=== PATIENT | female | born 1950 | race Caucasian/White ===

== ENCOUNTER → 2019-07-19 07:57 | Outpatient (CLI) | payer OTHER, SELFPAY ==
--- NOTE | ~2019-07-19 | MMUS_ITS ---
EXAMINATION: MM diagnostic eleanor LT w paulo, US breast LT limited HISTORY: Six-month follow-up for probably benign left breast asymmetry TECHNIQUE: Craniocaudal, mediolateral, and mediolateral oblique 3-D tomosynthesis images of the left breast were performed and synthetic 2-D images were generated. Spot compression views are also obtain ed. CAD analysis was submitted and interpreted. High resolution limited left breast ultrasound was pe rformed. COMPARISON: 12/14/2018, 11/30/2018, 10/17/1917, 10/21/2016 BREAST PARENCHYMAL COMPOSITION: There are scattered areas of fibroglandular density. FINDINGS: MAMMOGRAPHIC FINDINGS: A stable asymmetry is present 3.5 cm from the nipple in the middle/anterior third of the upper outer left breast. No associated suspicious calcification or architectural distortion are identified. ULTRASOUND: No definite cystic or solid mass is identified in the vicinity of the mammographic finding in questio n. IMPRESSION: 1. Probably benign left breast asymmetry. 2. Recommend 6 month follow-up left diagnostic mammogram and possible ultrasound. BI-RADS category 3, probably benign findings. Reviewed, dictated and finalized at location A. 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 Probably benign left breast asymmetry. 2. Recommend 6 month follow-up left diagnostic mammogram and possible ultrasoun d. BI-RADS category 3, probably benign findings.
== END ==
PROVIDERS: Visit Provider Obstetrics & Gynecology
DX: R92.8 Other abnormal and inconclusive findings on diagnostic imaging of breast (principal)
CPT/HCPCS: 76642; 77061; 77065; G0279

== ENCOUNTER → 2020-01-24 09:18 | Outpatient (CLI) | payer OTHER, SELFPAY ==
--- NOTE | ~2020-01-24 | MMUS_ITS ---
EXAMINATION: MM diagnostic eleanor BI w paulo, US breast LT limited HISTORY: Six-month follow-up for probably benign left breast asymmetry TECHNIQUE: Craniocaudal, mediolateral, and mediolateral oblique 3-D tomosynthesis images of the left breast were performed and synthetic 2-D images were generated. CAD analysis was submitted and interpr eted. High resolution limited left breast ultrasound was performed. COMPARISON: 07/19/2019, 12/14/2018, 11/30/2018, 10/17/2018, 10/21/2016 BREAST PARENCHYMAL COMPOSITION: The breasts are almost entirely fatty. FINDINGS: MAMMOGRAPHIC FINDINGS: Right breast: There is no evidence of suspicious mass, calcification, or architectural distortion to suggest malignancy. There has been no suspicious interval change. Left breast: There is a stable small asymmetry in the anterior/middle third of the upper outer left b reast approximately 3.5 cm from the nipple. No suspicious calcification or architectural distortion a re identified. ULTRASOUND: There is no evidence of focal abnormal solid or cystic lesion in the vicinity of the mammographic fin ding in question. IMPRESSION: 1. Stable, probably benign left breast asymmetry. 2. Given one year of interval stability, recommend 12 month followup left diagnostic mammogram and po ssible ultrasound. BI-RADS category 3, probably benign findings. Reviewed, dictated and finalized at location A. IMPRESSION: 1. Stable, probably benign left breast asymmetry. 2. Given one year of interval stability, recommend 12 month followup left diagn ostic mammogram and possible ultrasound. BI-RADS category 3, probably benign findings.
== END ==
PROVIDERS: Visit Provider Obstetrics & Gynecology
DX: R92.8 Other abnormal and inconclusive findings on diagnostic imaging of breast (principal)
CPT/HCPCS: 76642; 77062; 77066; G0279

== ENCOUNTER → 2021-03-20 14:22 | Outpatient (CLI) | payer OTHER, SELFPAY ==
--- NOTE | ~2021-03-20 | MMUS_ITS ---
EXAMINATION: MM diagnostic eleanor BI w paulo, US breast LT limited HISTORY: 12 month follow-up of probable benign 3 mm focal asymmetry in the upper outer quadrant of th e left breast TECHNIQUE: ML, MLO and craniocaudal 3-D tomosynthesis images of both breasts were performed and synth etic 2-D images were generated. CAD analysis was submitted and interpreted. High resolution left suba reolar breast ultrasound was performed. COMPARISON: Serial mammographic and ultrasound images dating back to 10/08/2015 BREAST PARENCHYMAL COMPOSITION: The breasts are almost entirely fatty. FINDINGS: MAMMOGRAPHIC FINDINGS: There is mild asymmetric ductal prominence in the subareolar area of the left breast. Otherwise no macias spicious mass, architectural distortion, malignant calcification, skin thickening or retraction of ei ther breast is detected. ULTRASOUND: No suspicious subareolar mass or shadowing, cyst or other significant finding is noted IMPRESSION: 1. Benign finding 2. Routine annual mammographic screening is recommended BI-RADS Category 2: Benign finding(s). Reviewed, dictated and finalized at location A. IMPRESSION: 1. Benign finding 2. Routine annual mammographic screening is recommended BI-RADS Category 2: Benign finding(s).
== END ==
PROVIDERS: Visit Provider Obstetrics & Gynecology
DX: R92.8 Other abnormal and inconclusive findings on diagnostic imaging of breast (principal)
CPT/HCPCS: 76642; 77062; 77066; G0279

== ENCOUNTER → 2021-07-31 14:48 | Outpatient (CLI) | payer OTHER, SELFPAY ==
--- NOTE | ~2021-07-31 | DEXA_ITS ---
Bone Density Report Name: MIKEL CARD Age: 70 Sex: Female Ethnicity: White Date of : 1950 Indication: postmenopausal; screening for osteoporosis; hysterectomy; Referring Provider: VIDHI DUENAS Study: Bone densitometry was performed. Exam Date: July 31, 2021 Accession number: [id number] Bone Density: Region BMD T-score Z-score Classification AP Spine (L1-L4) 0.860 -1.7 0.6 Osteopenia Femoral Neck (Left) 0.612 -2.1 -0.2 Osteopenia Total Hip (Left) 0.742 -1.6 0.0 Osteopenia Femoral Neck (Right) 0.655 -1.7 0.2 Osteopenia Total Hip (Right) 0.782 -1.3 0.3 Osteopenia Total Hip Mean 0.762 -1.5 0.2 Osteopenia World Health Organization criteria for BMD impression classify patients as: Normal (T-score at or above -1.0), Osteopenia (T-score between -1.0 and -2.5), or Osteoporosis (T-score at or below -2.5). 10-year Fracture Risk(1): Major Osteoporotic Fracture 13% Hip Fracture 3.0% Reported Risk Factors: [place] (), Neck BMD=0.612, BMI=30.1 (1) FRAX(R) Version 3.08. Fracture probability calculated for an untreated patient. Fracture probability may be lower if the patient has received treatment. Clinical Information Provided by Patient: Has used the following medications: Vitamin D Has the following medical conditions: Hysterectomy Patient maximum height was 62 Menopause Age: 51 Drinks caffeinated beverages Onset of menses at age 9 Number of children 3 Impression: The patient has low bone mass, based on the Left Femoral Neck T-score. The patient has an estimated ten-year risk of hip fracture of 3% and an estimated ten-year risk of major fracture of 13%, based on the WHO FRAX algorithm. Discussion: BONE DENSITY IS LOW AT ONE OR MORE SKELETAL SITES. THE PATIENT'S BMD AND CLINICAL RISK FACTORS CONTRIBUTE TO THIS PATIENT'S INCREASED RISK OF FRACTURE. This patient's lowest T-score is low at one or more skeletal sites. It meets the World Health Organization's (WHO) criteria for ?low bone mass? (T-score between -1.0 and -2.5). The patient's 10-year risk of hip fracture as calculated by FRAX exceeds the threshold where pharmacological therapy is recommended by the National Osteoporosis Foundation (NOF). However, all treatment decisions require clinical judgment and consideration of individual patient factors, including patient preferences, comorbidities, previous drug use, risk factors not captured in the FRAX model (e.g., frailty, falls, vitamin D deficiency, increased bone turnover, interval significant decline in bone density) and possible under or overestimation of fracture risk by FRAX. The patient should follow a healthful lifestyle (good nutrition with adequate calcium and vitamin D, and appropriate weight-bearing exercise). Follow-Up: Consider a repeat BMD and Vertebral
== END ==
PROVIDERS: PCP Family Medicine Adolescent Medicine; Visit Provider Family Medicine Adolescent Medicine
DX: Z78.0 Asymptomatic menopausal state (principal); M85.89 Other specified disorders of bone density and structure, multiple sites
CPT/HCPCS: 77080

== ENCOUNTER 2022-05-02 13:40 | Outpatient (CLI) | payer OTHER, SELFPAY ==
--- NOTE | ~2022-05-02 | MM_ITS ---
EXAMINATION: MM screening eleanor BI w paulo HISTORY: Screening mammogram TECHNIQUE: Craniocaudal and mediolateral oblique 3-D tomosynthesis images were obtained and synthetic 2-D images were generated. CAD analysis was submitted and interpreted. COMPARISON: 03/20/2021, 01/24/2020 BREAST PARENCHYMAL COMPOSITION: The breasts are almost entirely fatty. FINDINGS: No suspicious mass, calcification, or architectural distortion are identified in either zoran ast to suggest malignancy. There has been no suspicious interval change. IMPRESSION: 1. No mammographic evidence of malignancy. 2. Recommend routine screening mammography in one year. BI-RADS Category 1: Negative Reviewed, dictated and finalized at location A. 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
== END 2022-05-02 13:41 | disposition home or self-care (01) ==
PROVIDERS: PCP Family Medicine Adolescent Medicine; Visit Provider Family Medicine Adolescent Medicine
DX: Z12.31 Encounter for screening mammogram for malignant neoplasm of breast (principal)
CPT/HCPCS: 77063; 77067

== ENCOUNTER → 2023-05-07 15:15 | Outpatient (CLI) | payer OTHER, SELFPAY ==
--- NOTE | ~2023-05-07 | MM_ITS ---
EXAMINATION: MM screening eleanor BI w paulo HISTORY: Screening TECHNIQUE: Craniocaudal and mediolateral oblique 3-D tomosynthesis images were obtained and synthetic 2-D images were generated. CAD analysis was submitted and interpreted. COMPARISON: 01/24/2020 BREAST PARENCHYMAL COMPOSITION: The breasts are almost entirely fatty. FINDINGS: There is no evidence of suspicious mass, calcification, or architectural distortion to sugg est malignancy in either breast. There has been no suspicious interval change. IMPRESSION: 1. No mammographic evidence of malignancy. 2. Recommend routine screening mammography in one year. BI-RADS Category 1: Negative Reviewed, dictated and finalized at location A. FORMER
== END ==
PROVIDERS: PCP Family Medicine Adolescent Medicine; Visit Provider Family Medicine Adolescent Medicine
DX: Z12.31 Encounter for screening mammogram for malignant neoplasm of breast (principal)
CPT/HCPCS: 77063; 77067

== ENCOUNTER 2024-05-09 13:48 | Outpatient (CLI) | payer OTHER, SELFPAY ==
--- NOTE | ~2024-05-09 | MM_ITS ---
EXAMINATION: MM screening eleanor BI w paulo HISTORY: Screening TECHNIQUE: Craniocaudal and mediolateral oblique 3-D tomosynthesis images were obtained and synthetic 2-D images were generated. CAD analysis was submitted and interpreted. COMPARISON: Comparison to multiple prior studies sequentially, with oldest reviewed study dated 01/23. BREAST PARENCHYMAL COMPOSITION: Not Dense: The breasts are almost entirely fatty. FINDINGS: There is no evidence of suspicious mass, calcification, or architectural distortion to sugg est malignancy in either breast. There has been no suspicious interval change. IMPRESSION: 1. No mammographic evidence of malignancy. 2. Recommend routine screening mammography in one year. BI-RADS Category 1: Negative Reviewed, dictated and finalized at location B. 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
== END 2024-05-09 13:49 | disposition home or self-care (01) ==
PROVIDERS: PCP Family Medicine Adolescent Medicine; Visit Provider Family Medicine Adolescent Medicine
DX: Z12.31 Encounter for screening mammogram for malignant neoplasm of breast (principal)
CPT/HCPCS: 77063; 77067

== ENCOUNTER 2024-05-19 01:15 | Day surgery (SDC) | payer OTHER, SELFPAY ==
[2024-05-09 13:05] VITALS: BMI 31.3
--- NOTE | 2024-05-18 13:22 | WPDANESEPPF ---
Anes - Initial Pre Proc Eval Procedure: Operation Date: 05/19/24 08:00 Proposed Procedures p Screening Colonoscopy - Seun Ralph MD Date/Time: 05/18/24 13:22 Surgeon: Seun Ralph MD Pre Op Diagnosis: screening neoplasm colon Patient Data Age: 73 Gender: F Height: 1.57 m Weight: 77.6 kg Allergies Allergy/AdvReac Type Severity Reaction Status Date / Time rosuvastatin (From Crestor) AdvReac Unknown Leg pain Verified 05/19/24 06:44 Home Medications ?Medication ?Instructions ?Recorded ?Confirmed ?Type fluocinonide 0.05 % topical 1 applic topical BID #60 grams 06/08/22 05/19/24 Rx ointment tacrolimus 0.1 % topical solution See Rx Instructions topical DAILY 02/22/23 05/09/24 History PRN rash atorvastatin 80 mg tablet 80 mg PO DAILY #90 tabs 05/19/23 05/19/24 Rx estradiol 0.01% (0.1 mg/gram) See Rx Instructions .Route 11/03/23 05/19/24 Rx vaginal cream .COMPLEX #42.5 grams omeprazole 20 mg capsule,delayed See Rx Instructions .Route 11/03/23 05/19/24 Rx release .COMPLEX #90 caps levothyroxine 75 mcg tablet 75 mcg PO DAILY #90 tabs 11/24/23 05/19/24 Rx citalopram 10 mg tablet 10 mg PO DAILY #90 tabs 04/28/24 05/19/24 Rx clobetasol 0.05 % topical ointment 1 applic topical BID 2 weeks #30 04/30/24 05/19/24 Rx grams hydrocortisone 2.5 % topical 1 applic topical BID PRN rash 05/09/24 05/09/24 History ointment Patient hx anesthesia problems: none Family hx anesthesia problems: none Results Review: All pre-operative results and documents have been reviewed as part of the pre-operative evaluation. [facility] Past Medical History Medical History (Updated 05/19/24 @ 07:16 by Venkatesh Beard DO) Pure hypercholesterolemia, unspecified Hypothyroidism, unspecified Surgical History Surgical History History of hysterectomy, supracervical (2003) w/BSO Hx of cholecystectomy (07/2015) Family History Family History Father COPD (chronic obstructive pulmonary disease) Mother Hypertension Glaucoma Sibling Acute myocardial infarction Diabetes mellitus Cerebrovascular accident Sibling Acute myocardial infarction Social History Social History Smoking status: Former smoker Tobacco type: cigarettes Substance use type: does not use Lack of Transportation: No Lack of Food: Never True Current Housing: I Have Housing Concerned About Future Housing: No Difficulty Paying Gas/Electric Bills: No Difficulty Paying for Meds: No Currently Unemployed: No Education: Decline to Answer Difficulty w/ Childcare or Family Care: No Living arrangements: with family Spiritual care concerns: No Anes - Eval Final PreProcedure Day of Procedure 05/18/24 13:22 Patient weight: obese Heart: regular rate and rhythm Lungs: clear to auscultation Airway: Mallampati scale class II Neurological: alert and oriented Last oral intake: >/= 8 hours ASA classification: II Emergent: no Anesthetic plan: proceed Anesthesia type and monitoring: general GIVS and standard monitoring Results Review: All pre-operative results and documents have been reviewed as part of the pre-operative evaluation. Informed Consent: The patient's anesthetic plan and its attendant risks and benefits were discussed with the patient/family/POA. Questions were solicited and answers provided to the satisfaction of the patient/family/POA.
[2024-05-19 06:47] VITALS: BP 100/68; PULSE 114; RESP 18; TEMP 36.1; O2SAT 96; BMI 30.5
[2024-05-19] MEDS: LACTATED RINGERS 1,000 ML 150 ML IV CONT (07:00)
--- NOTE | 2024-05-19 07:46 | PM.HPGS ---
History of Present Illness History of Present Illness Consent: Risks, benefits, and alternatives have been discussed and questions answered. Patient agrees to proceed with procedure. Chief complaint: screening neoplasm colon Narrative: Melisa Rasmussen is a 73 year old female with screening colonoscopy, last one 10 years ago Review of Systems Review of Systems: All systems reviewed & are unremarkable except as noted in HPI and below PMFSH Past Medical History Medical History (Updated 05/19/24 @ 07:16 by Venkatesh Beard, DO) Pure hypercholesterolemia, unspecified Hypothyroidism, unspecified Surgical History Surgical History History of hysterectomy, supracervical (2003) w/BSO Hx of cholecystectomy (07/2015) Family History Family History Father COPD (chronic obstructive pulmonary disease) Mother Hypertension Glaucoma Sibling Acute myocardial infarction Diabetes mellitus Cerebrovascular accident Sibling Acute myocardial infarction Social History Social History Smoking status: Former smoker Tobacco type: cigarettes Substance use type: does not use Lack of Transportation: No Lack of Food: Never True Current Housing: I Have Housing Concerned About Future Housing: No Difficulty Paying Gas/Electric Bills: No Difficulty Paying for Meds: No Currently Unemployed: No Education: Decline to Answer Difficulty w/ Childcare or Family Care: No Living arrangements: with family Spiritual care concerns: No Meds Home Medications and Allergies Home Medications ?Medication ?Instructions ?Recorded ?Confirmed ?Type fluocinonide 0.05 % topical 1 applic topical BID #60 grams 06/08/22 05/19/24 Rx ointment tacrolimus 0.1 % topical solution See Rx Instructions topical DAILY 02/22/23 05/09/24 History PRN rash atorvastatin 80 mg tablet 80 mg PO DAILY #90 tabs 05/19/23 05/19/24 Rx estradiol 0.01% (0.1 mg/gram) See Rx Instructions .Route 11/03/23 05/19/24 Rx vaginal cream .COMPLEX #42.5 grams omeprazole 20 mg capsule,delayed See Rx Instructions .Route 11/03/23 05/19/24 Rx release .COMPLEX #90 caps levothyroxine 75 mcg tablet 75 mcg PO DAILY #90 tabs 11/24/23 05/19/24 Rx citalopram 10 mg tablet 10 mg PO DAILY #90 tabs 04/28/24 05/19/24 Rx clobetasol 0.05 % topical ointment 1 applic topical BID 2 weeks #30 04/30/24 05/19/24 Rx grams hydrocortisone 2.5 % topical 1 applic topical BID PRN rash 05/09/24 05/09/24 History ointment Allergies Allergy/AdvReac Type Severity Reaction Status Date / Time rosuvastatin (From Crestor) AdvReac Unknown Leg pain Verified 05/19/24 06:44 Vital Signs Vital Signs - 24 hr 05/19/24 06:47 Temperature 97 F L Pulse Rate 114 H Respiratory Rate 18 Blood Pressure 100/68 Pulse Oximetry 96 Oxygen Delivery Room Air Exam Const: General: comfortable and no acute distress HENMT: Face/Nose/Sinus: Normal nares present Eyes: General: appearance normal, both eyes and all related structures Neck: Neck: no JVD Resp: Auscultation: clear to auscultation bilaterally Cardio: Rate: regular rate Rhythm: regular rhythm GI: Inspection: non-distended GI Palp: Yes Soft to palpation Skin: General skin exam: normal color Neuro: General: gait normal Speech: normal speech Extrem: General: normal to inspection Psych: Mental Status: mental status grossly normal Assessment and Plan Assessment and plan (1) Colon cancer screening: Code(s): Z12.11 - Encounter for screening for malignant neoplasm of colon Status: Acute Assessment and Plan: colonoscopy
[2024-05-19 08:06] VITALS: BP 118/72; PULSE 84; RESP 22; O2SAT 97
[2024-05-19 08:16] VITALS: BP 129/75; PULSE 75; RESP 18; O2SAT 98
[2024-05-19 08:26] VITALS: BP 144/92; PULSE 78; RESP 18; O2SAT 99
--- NOTE | 2024-05-19 08:50 | SUR.PHASEII ---
0820: SPOKE WITH PT REGARDING PETICHAE RASH/ABRASION ON HER BACK. PT AND SPOUSE STATE SHE HAS HAD IT FOR A WHILE AND DOCTOR IS ADDRESSING.
== END 2024-05-19 08:34 | disposition home or self-care (01) ==
PROVIDERS: PCP Family Medicine Adolescent Medicine; Visit Provider Internal Medicine Gastroenterology
PROC: 0DJD8ZZ Inspection of Lower Intestinal Tract, Via Natural or Artificial Opening Endoscopic (ICD-10-PCS; CPT 45378; principal; 2024-05-19 08:00)
DX: Z12.11 Encounter for screening for malignant neoplasm of colon (principal); R19.7 Diarrhea, unspecified; K64.8 Other hemorrhoids; E78.00 Pure hypercholesterolemia, unspecified; E03.9 Hypothyroidism, unspecified; Z87.891 Personal history of nicotine dependence; E66.9 Obesity, unspecified; Z68.30 Body mass index [BMI] 30.0-30.9, adult
CPT/HCPCS: 45380; 88305; J2003; J2704; J7120

== ENCOUNTER 2025-01-26 10:27 | Outpatient (CLI) | payer MEDICARE, SELFPAY ==
--- NOTE | ~2025-01-26 | XR_ITS ---
XR lumbar spine 2-3V 01/26/2025 11:10 Indication: Right hip pain Procedure: 3 views lumbar spine Comparison: No prior studies for comparison. Findings: Vertebral body heights are maintained. There is facet hypertrophy perched at L5-S1. There is disc narrowing and endplate degenerative change at L1-2, L2-3. No evidence for spondylolisthesis. There are cholecystectomy clips. There is atherosclerosis. Impression: 1: Moderate lumbar spondylosis. Reviewed, dictated and finalized at location O. Impression: 1: Moderate lumbar spondylosis.
--- NOTE | ~2025-01-26 | XR_ITS ---
EXAM/ PROCEDURE: XR hip RT min 2V - 01/26/2025 10:48 CDT HISTORY: 74 years old Female with M25.551 - Pain in right hip COMPARISON: None available TECHNIQUE: Three view(s) FINDINGS/ IMPRESSION: There are no fractures or dislocations.Joint space narrowing, subchondral sclerosis, subchondral cyst formation and osteophyte formation, compatible with moderate osteoarthritis. Reviewed, dictated and finalized at location N.
== END 2025-01-26 10:28 | disposition home or self-care (01) ==
LOC: MICIMG 10:30
PROVIDERS: PCP Nurse Practitioner Family; Visit Provider Nurse Practitioner Family
DX: M25.551 Pain in right hip (principal); M16.11 Unilateral primary osteoarthritis, right hip; M54.16 Radiculopathy, lumbar region; M43.06 Spondylolysis, lumbar region
CPT/HCPCS: 72100; 73502

== ENCOUNTER 2025-05-23 11:18 | Outpatient (CLI) | payer MEDICARE, SELFPAY ==
--- NOTE | ~2025-05-23 | MM_ITS ---
EXAMINATION: MM screening eleanor BI w paulo HISTORY: Screening TECHNIQUE: Craniocaudal and mediolateral oblique 3-D tomosynthesis images were obtained and synthetic 2-D images were generated. CAD analysis was submitted and interpreted. COMPARISON: Comparison to multiple prior studies sequentially, with oldest reviewed study dated 07/19/2019. BREAST PARENCHYMAL COMPOSITION: Not Dense: The breasts are almost entirely fatty. FINDINGS: There is no evidence of suspicious mass, calcification, or architectural distortion to suggest malignancy in either breast. There has been no suspicious interval change. IMPRESSION: 1. No mammographic evidence of malignancy. 2. Recommend routine screening mammography in one year. BI-RADS Category 1: Negative Reviewed, dictated and finalized at location O. 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
== END 2025-05-23 11:19 | disposition home or self-care (01) ==
LOC: MICIMG 11:18
PROVIDERS: PCP Nurse Practitioner Family; Visit Provider Family Medicine Adolescent Medicine
DX: Z12.31 Encounter for screening mammogram for malignant neoplasm of breast (principal)
CPT/HCPCS: 77063; 77067